=== PATIENT | male | born 1960 | race Caucasian/White ===

== ENCOUNTER 2020-03-29 09:26 | Outpatient (CLI) | payer OTHER ==
--- NOTE | 2020-03-29 12:12 | MRI ---
MRI RIGHT SHOULDER WITHOUT CONTRAST: Date: 03/29/2020 HISTORY: Shoulder pain. COMPARISON: None. FINDINGS: Biceps Tendon: Moderate interarticular tendinosis. Mild bridging upon the lesser tuberosity. Labrum: There is a posterior superior, posterior, and posterior inferior chondral labral junctional tear. Int rasubstance tear superior labrum. Rotator Cuff: Mild to moderate tendinosis of subscapularis. There is a bursal surface 40-50% tear of the anterior 1 .0 cm fibrous supraspinatus tendon which extends into the posterior 1/2 fibers as a hidden interstiti al tear involving 30-40% at the footprint width. The tear propagates into the anterior 6-7 mm of the infraspinatus tendon. No full thickness perforation. Bones: Advanced degenerative disease of acromioclavicular joint. Moderate acromioclavicular joint effusion a nd inferiorly directed osteophytes. Mild lateral downsloping of the acromion. Normal glenoid version. Muscles: Muscle signal and bulk are normal. Cartilage: No high grade chondral defect. IMPRESSION: 1. Perching of the biceps tendon upon the lesser tuberosity through insufficiency of the glenohumera l ligament portion and the biceps prieto. 2. 40-50% bursal surface tear anterior 1.0 cm fibers of supraspinatus tendon propagating into the po sterior fibers and anterior 6-7 mm fibers infraspinatus tendon as a hidden interstitial tear involvin g 30-40% distal footprint width. No full thickness perforation. 3. Small to moderate subacromial/subdeltoid bursa effusion. 4. Mild lateral downsloping of the Type I acromion. POS: [facility]
== END 2020-03-29 09:27 | disposition home or self-care (01) ==
LOC: MRI 09:26
PROVIDERS: ATTEND Family Medicine Sports Medicine
DX: S46.011A Strain of muscle(s) and tendon(s) of the rotator cuff of right shoulder, initial encounter (principal); M25.511 Pain in right shoulder; M25.411 Effusion, right shoulder